=== PATIENT | female | born 1985 | race African-American/Black ===

== ENCOUNTER 2016-10-23 03:25 | Emergency (ER) | payer SELFPAY ==
[2016-10-23] MEDS ORDERED: Ondansetron HCl/PF 4 MG/2 ML Vial ONE (04:19)
[2016-10-23] MEDS ORDERED: Pantoprazole 40 MG VIAL ONE (04:19)
[2016-10-23 04:39] LABS: Clarity Slightly Cloudy (Clear); Leukocyte Large (Negative); Nitrite Negative (Negative); Pregnancy Test - Urine (BHCG) Negative (Negative); Pregu Control Background? CLEAR/WHITE (CLR/WHITE); Pregu Control Bar Appear? YES (CONTROL BAR); Specific Gravity 1.015 (1.002-1.036); Specific Gravity, Urine 1.015 (1.005-1.030); pH, Urine 8.5 (5.0-9.0)
[2016-10-23 04:40] LABS: Bacteria/HPF 4+ HPF (None Seen); Bilirubin Negative (Negative); Blood, Urine Trace (Negative); Crystals/HPF 2+ AMORPH PHOS HPF (Negative); Glucose, Urine (Dipstick) Negative (Negative); Protein, Urine (Dipstick) 100 mg/dL (Neg-Trace); Renal Epithelial 0-3 HPF (0-3); Transitional Epithelial 0-3 HPF (0-3); Yeast-All Forms 1+ HPF (None Seen)
[2016-10-23 04:42] LABS: #Basophils 0.1 thou/uL (0.0-0.2); #Lymphocytes 2.4 thou/uL (1.20-3.40); #Monocytes 0.8 thou/uL (0.11-0.59); #Neutrophils 11.2 thou/uL (1.40-6.50); %Basophils 0.5 % (0.0-1.0); %Eosinophils 0.3 % (0.0-10.0); %Lymphocytes 16.6 % (21.0-51.0); %Monocytes 5.6 % (0.0-10.0); Hemoglobin 13.4 g/dL (12.0-16.0); Mean Corpuscular HGB CONC 34.5 g/dL (32.0-36.0); Mean Corpuscular Hemoglobin 31.1 pg (27.0-31.0); Mean Corpuscular Volume 90.3 fl (81.0-99.0); Platelet Count 266 thou/uL (130-400); RBC Distribution Width 12.2 % (11.5-14.5); White Blood Cell (WBC) Count 14.5 thou/uL (4.8-10.8)
[2016-10-23 04:49] LABS: ALT (SGPT) 25 U/L (8-55); Albumin 4.3 g/dL (3.5-5.0); Alkaline Phosphatase 66 U/L (40-150); Anion Gap 20 mmol/L (10-20); BUN (Urea Nitrogen) 12 mg/dL (7.0-18.7); Bilirubin, Total 0.5 mg/dL (0.2-1.2); Calc. Creatinine Clearance 0 mL/min (70-130); Calcium 9.5 mg/dL (7.8-10.44); Carbon Dioxide 16 mmol/L (22-29); Chloride 108 mmol/L (98-107); Estimated GFR-MDRD Greater than 90; Globulin 4.1 g/dL (2.4-3.5); Glucose 121 mg/dL (70-105); Lipase 20 U/L (8-78); Potassium 3.7 mmol/L (3.5-5.1); Protein, Total 8.4 g/dL (6.0-8.3); Sodium 140 mmol/L (136-145)
[2016-10-23 04:54] LABS: AST (SGOT) 72 U/L (5-34)
[2016-10-23] MEDS ORDERED: Ciprofloxacin 500 MG TAB ONE (05:23)
--- NOTE | 2016-10-23 08:18 | CT ---
PRELIMINARY REPORT/[facility]/EMERGENCY AFTER HOURS PROCEDURE: EXAM: CT Abdomen and Pelvis With Intravenous Contrast CLINICAL HISTORY: 30 years old, female; Pain; Abdominal pain; Acute TECHNIQUE: Axial computed tomography images of the abdomen and pelvis with intravenous contrast. Coronal reform atted images were created and reviewed. CONTRAST: 90 mL of ISOVUE 370 administered intravenously. EXAM DATE/TIME: Exam ordered 10/23/2016 5:17 AM COMPARISON: No relevant prior studies available. FINDINGS: Lower thorax: There is subpleural atelectasis of the dependent portions of the lungs. ABDOMEN: Liver: There are no focal liver lesions present. Gallbladder and bile ducts: The gallbladder is contracted but otherwise normal. No calcified stones. No ductal dilation. Pancreas: The pancreas is normal. No ductal dilation. Spleen: The spleen is normal. Adrenals: The adrenal glands are normal. Kidneys and ureters: The kidneys are normal. No hydronephrosis. Stomach and bowel: There is nonspecific colonic wall thickening. This may be related to incomplete d istention or colitis in the appropriate clinical setting. The stomach is normal. The duodenum is unr emarkable. Appendix: No appendix is specifically identified. There is no evidence of fluid collections or infla mmatory stranding in the right lower quadrant. PELVIS: Bladder: The bladder is normal. Reproductive: The uterus is normal. There is a LEFT ovarian 2.1 cm simple cyst. ABDOMEN and PELVIS: Intraperitoneal space: Normal. No free air. No significant fluid collection. Bones/joints: No acute fracture. No dislocation. Soft tissues: Normal. Vasculature: Normal. No abdominal aortic aneurysm. Lymph nodes: Normal. No enlarged lymph nodes. IMPRESSION: There is nonspecific colonic wall thickening. This may be related to incomplete distention or coliti s in the appropriate clinical setting. Correlate clinically. Thank you for allowing us to participate in the care of your patient. Dictated and Authenticated by: Jesus Escoto MD 10/23/2016 5:45 AM Central Time ([place] \T\ [place]) FINAL REPORT EMERGENCY AFTER HOURS CT OF ABDOMEN AND PELVIS: Date: 10/23/16 FINDINGS/IMPRESSION: I agree with the findings and impression given in the preliminary report per [facility] physician. The ethel arent thickening in the colon is likely secondary to its decompressed state. No acute intra-abdomina l/pelvic abnormality is seen. POS: [facility]
[2016-10-23] MEDS ORDERED: Sodium Chloride 0.9% 1,000 ML BAG ONE (10:28)
[2016-10-23] MEDS ORDERED: Iopamidol 370 76% 100 ML VIAL ONE (10:54)
== END 2016-10-23 06:08 | disposition home or self-care (01) ==
LOC: MADERS 03:25
DX: A09 Infectious gastroenteritis and colitis, unspecified (principal); N39.0 Urinary tract infection, site not specified; B37.3 Candidiasis of vulva and vagina; F41.9 Anxiety disorder, unspecified
CPT/HCPCS: 36415; 74177; 80053; 81003; 81015; 81025; 82150; 83690; 85025; 87086; 96361; 96374; 96375; C9113; J2270; J2405; J7050

== ENCOUNTER 2017-02-07 16:01 | Emergency (ER) | payer SELFPAY | END 2017-02-07 17:19 | disposition home or self-care (01) | LOC: MADERS 16:01 | DX: M54.6 Pain in thoracic spine (principal); F41.9 Anxiety disorder, unspecified | CPT/HCPCS: 99283 ==

== ENCOUNTER 2017-06-28 20:07 | Emergency (ER) | payer BC, SELFPAY ==
[2017-06-28 20:34] LABS: Pregnancy Test - Urine (BHCG) Negative (Negative); Pregu Control Background? CLEAR/WHITE (CLR/WHITE); Pregu Control Bar Appear? YES (CONTROL BAR); Specific Gravity 1.015 (1.002-1.036)
[2017-06-28 20:39] LABS: Clarity Hazy (Clear); Leukocyte Moderate (Negative); Specific Gravity, Urine 1.015 (1.005-1.030); pH, Urine 6.5 (5.0-9.0)
[2017-06-28 20:40] LABS: Bilirubin Negative (Negative); Blood, Urine Moderate (Negative); Glucose, Urine (Dipstick) Negative (Negative); Nitrite Negative (Negative); Protein, Urine (Dipstick) Negative (Neg-Trace); RBC/HPF GREATER THAN 50-TNTC HPF (0-3); Urobilinogen 0.2 mg/dL (0.2-1.0)
[2017-06-28 20:41] LABS: Bacteria/HPF 2+ HPF (None Seen)
[2017-06-28] MEDS ORDERED: Sulfameth/Trimethoprim DS 800-160mg TAB ONE (21:13)
== END 2017-06-28 21:48 | disposition home or self-care (01) ==
LOC: MADERS 20:07
DX: N39.0 Urinary tract infection, site not specified (principal); F41.9 Anxiety disorder, unspecified
CPT/HCPCS: 81001; 81025; 87086; 99284

== ENCOUNTER 2017-10-25 23:34 | Emergency (ER) | payer SELFPAY | END 2017-10-25 23:55 | disposition home or self-care (01) | LOC: MADERS 23:34 | DX: S46.912A Strain of unspecified muscle, fascia and tendon at shoulder and upper arm level, left arm, initial encounter (principal); S29.012A Strain of muscle and tendon of back wall of thorax, initial encounter; X50.1XXA Overexertion from prolonged static or awkward postures, initial encounter | CPT/HCPCS: 99283 ==

== ENCOUNTER 2018-01-05 18:30 | Emergency (ER) | payer SELFPAY ==
--- NOTE | 2018-01-05 19:00 | RAD ---
PORTABLE CHEST: 01/05/18 HISTORY: Chest pain. Heart size and mediastinum are within normal limits. The lungs are clear of infiltrates. No significa nt bony findings. IMPRESSION: No active intrathoracic disease. POS: [facility]
== END 2018-01-05 19:10 | disposition home or self-care (01) ==
LOC: MADERS 18:30
DX: R07.9 Chest pain, unspecified (principal); Z79.899 Other long term (current) drug therapy
CPT/HCPCS: 71045

== ENCOUNTER 2018-07-07 14:17 | Emergency (ER) | payer SELFPAY | END 2018-07-07 14:48 | disposition home or self-care (01) | LOC: MADERS 14:17 | DX: S29.012A Strain of muscle and tendon of back wall of thorax, initial encounter (principal); X50.1XXA Overexertion from prolonged static or awkward postures, initial encounter | CPT/HCPCS: 99283 ==

== ENCOUNTER 2021-05-30 09:00 | Emergency (ER) | payer SELFPAY, OTHER ==
[2021-05-30] MEDS ORDERED: Cyclobenzaprine 10 MG TAB ONE (10:19)
[2021-05-30] MEDS ORDERED: Ketorolac Tromethamine 30 MG/ML VIAL ONE (10:19)
[2021-05-30 10:24] LABS: #Basophils 0.1 thou/uL (0.0-0.2); #Lymphocytes 2.6 thou/uL (1.20-3.40); #Monocytes 0.5 thou/uL (0.11-0.59); #Neutrophils 5.4 thou/uL (1.40-6.50); %Basophils 1.1 % (0.0-1.0); %Lymphocytes 30.4 % (21.0-51.0); %Monocytes 5.7 % (0.0-10.0); %Neutrophils 62.8 % (42.0-75.0); Hemoglobin 12.7 g/dL (12.0-16.0); Mean Corpuscular HGB CONC 32.9 g/dL (32.0-36.0); Mean Corpuscular Hemoglobin 29.8 pg (27.0-31.0); Mean Corpuscular Volume 90.6 fL (78.0-98.0); Mean Platelet Volume 6.9 fL (7.4-10.4); Platelet Count 345 thou/uL (130-400); RBC Distribution Width 13.2 % (11.5-14.5); Red Blood Cell (RBC) Count 4.27 mill/uL (4.20-5.40); White Blood Cell (WBC) Count 8.5 thou/uL (4.8-10.8)
[2021-05-30 10:29] LABS: BHCG - Serum Negative (NEGATIVE); Pregs Control Background? CLEAR/WHITE (CLR/WHITE); Pregs Control Bar Appear? YES (CONTROL BAR)
[2021-05-30 10:39] LABS: ALT (SGPT) Less than 7 U/L (8-55); AST (SGOT) 18 U/L (5-34); Albumin 4.3 g/dL (3.5-5.0); Alkaline Phosphatase 67 U/L (40-110); Anion Gap 16 mmol/L (10-20); BUN (Urea Nitrogen) 13 mg/dL (7.0-18.7); Bilirubin, Total 0.3 mg/dL (0.2-1.2); Calc. Creatinine Clearance 0 mL/min (70-130); Carbon Dioxide 21 mmol/L (22-29); Chloride 107 mmol/L (98-107); Globulin 4.3 g/dL (2.4-3.5); Glucose 92 mg/dL (70-105); Lipase 21 U/L (8-78); Potassium 3.9 mmol/L (3.5-5.1); Protein, Total 8.6 g/dL (6.0-8.3); Sodium 140 mmol/L (136-145)
[2021-05-30] MEDS ORDERED: Iopamidol 370 76% 100 ML VIAL ONE (12:25)
== END 2021-05-30 11:25 | disposition home or self-care (01) ==
LOC: MADERS 09:00
DX: S16.1XXA Strain of muscle, fascia and tendon at neck level, initial encounter (principal); R10.32 Left lower quadrant pain; M54.50 Low back pain, unspecified; M25.512 Pain in left shoulder; V43.53XA Car driver injured in collision with pick-up truck in traffic accident, initial encounter
CPT/HCPCS: 71260; 72125; 74177; 80053; 83690; 84703; 85025; 96374; J1885; Q9967

== ENCOUNTER 2021-06-02 15:24 | Emergency (ER) | payer OTHER, SELFPAY | END 2021-06-02 16:34 | disposition home or self-care (01) | LOC: MADERS 15:24 | DX: S46.911A Strain of unspecified muscle, fascia and tendon at shoulder and upper arm level, right arm, initial encounter (principal); S16.1XXD Strain of muscle, fascia and tendon at neck level, subsequent encounter; S13.4XXD Sprain of ligaments of cervical spine, subsequent encounter; V89.2XXA Person injured in unspecified motor-vehicle accident, traffic, initial encounter | CPT/HCPCS: 99283 ==

== ENCOUNTER 2022-05-16 07:52 | Emergency (ER) | payer SELFPAY ==
[2022-05-16] MEDS ORDERED: Ibuprofen 800 MG TAB ONE (08:48)
== END 2022-05-16 08:50 | disposition home or self-care (01) ==
LOC: MADERS 07:52
DX: G89.29 Other chronic pain (principal); M54.50 Low back pain, unspecified
CPT/HCPCS: 99283

== ENCOUNTER 2023-02-11 19:21 | Emergency (ER) | payer BC, SELFPAY ==
[2023-02-11 19:49] LABS: Pregnancy Test - Urine (BHCG) Negative (Negative); Pregu Control Background? CLEAR/WHITE (CLR/WHITE); Pregu Control Bar Appear? YES (CONTROL BAR); Specific Gravity 1.025 (1.002-1.036)
== END 2023-02-11 20:09 | disposition home or self-care (01) ==
LOC: MADERS 19:21
DX: J06.9 Acute upper respiratory infection, unspecified (principal)
CPT/HCPCS: 81025; 87081; 87430; 99283